=== PATIENT | female | born 1970 | race African-American/Black ===

== ENCOUNTER 2022-03-04 08:18 | Emergency (ER) | payer MEDICAID ==
[~2022-03-04] VITALS: Ht 167.6 cm; Wt 70.0 kg
[2022-03-04 08:22] VITALS: BP 133/88
[2022-03-04] MEDS: ALBUTEROL (0.083%) 2.5MG/3ML NEB HHN STA (09:50)
[2022-03-04] MEDS: IPRATROPIUM BROMIDE (0.02%) 0.5MG/2.5ML NEB HHN STA (09:50)
[2022-03-04 11:13] LABS: BASOPHILS % 0.6 % (0.0-2.0); EOSINOPHILS % 1.2 % (0.0-5.0); HEMATOCRIT. 38.1 % (36.0-48.0); HEMOGLOBIN. 13.3 g/dL (12.0-16.0); LYMPHOCYTES % 29.3 % (20.0-50.0); MEAN CORPUSCULAR VOLUME 97.2 fL (81.0-99.0); MEAN PLATELET VOLUME 8.7 fl (7.4-10.4); MONOCYTES % 5.9 % (2.0-8.0); PLATELET 476 x1000/uL (130-400); RED BLOOD CELL COUNT 3.92 mill/uL (4.2-5.4); RED CELL DISTRIBUTION WIDTH 13.6 % (11.6-14.6)
[2022-03-04 11:27] LABS: CHLORIDE 104 mEq/L (98-107)
[2022-03-04] MEDS: PREDNISONE 20MG TABLET PO ONE (11:32)
[2022-03-04] MEDS: ALBUTEROL (0.5%) 2.5MG/0.5ML NEB HHN NR (11:55)
[2022-03-04] MEDS ORDERED: T3 PO (14:08)
[2022-03-04] MEDS ORDERED: PRED10TA MT (14:08)
[2022-03-04] MEDS ORDERED: ALBU4TAB6 MT (14:08)
== END 2022-03-04 14:23 | disposition home or self-care (01) ==
LOC: ER 08:18
DX: B34.9 Viral infection, unspecified (principal); R06.02 Shortness of breath; J45.909 Unspecified asthma, uncomplicated; Z20.822 Contact with and (suspected) exposure to COVID-19
CPT/HCPCS: 36415; 71045; 80053; 83880; 84484; 85025; 87426; 87804; 93005; 94640; 99285; C9803; J7512; Z7610